=== PATIENT | female | born 1950 | race Caucasian/White ===

== ENCOUNTER 2023-04-06 19:41 | Inpatient (IN) ==
[2023-04-06] MEDS ORDERED: VANCOMYCIN CONSULT ACTIVE PRN (19:50)
[2023-04-06] MEDS ORDERED: SODIUM CHLORIDE 0.9% 1000ML 1,000 ML IV STA (19:50)
[2023-04-06] MEDS ORDERED: cefTRIAXone SODIUM 2,000 MG/70 ML BAG IV STA (19:50)
[2023-04-06] MEDS ORDERED: VANCOMYCIN HCL 2,000 MG in SODIUM CHLORIDE 0.9% 500 ML IV STA (19:50)
[2023-04-06] MEDS ORDERED: KETOROLAC TROMETHAMINE 15 MG/ML VIAL IV ONE (20:02)
--- NOTE | 2023-04-06 20:07 | Emergency Department Note ---
Impression & Plan Bacteremia due to Gram-positive bacteria, Acute sore throat, Acute bacterial tonsillitis ED Provider Note Provider: Juan Vallejo MD DATE OF SERVICE: 04/06/2023 CHIEF COMPLAINT: Called back due to blood cultures HISTORY OF PRESENT ILLNESS: Patient is a 72-year-old female history of paroxysm al atrial fibrillation maintained on flecainide and Xarelto presenting here today after being called back due to positive blood cultures from yesterday. Patient was seen here yesterday in the emergency department and referred from urgent care due to sore throat and fever. Evidently seen in urgent care initially and started on amoxicillin yesterday around noon for possible strep infection although she reports strep testing was negative they thought clinically she would have it. Has a bit of a sore throat causing some difficulty swallowing and a bit of right ear pain. Seen yesterday and had evaluation. Minimal leukocytosis otherwise evaluation was reassuring. Blood cultures obtained. Sent home. Blood cultures returned today positive in both bottles for gram-positive bacteria. Has taken an additional dose of amoxicillin for 3 total doses last at noon. Not eating and drinking much states it hurts to swallow and she is has a bit more tenderness under the right jawline. Breathing okay and denies significant cough. Denies significant abdominal pain but reports her stomach feels a bit unsettled. Generalized fatigue. Has been out for about 2 days. No trauma. Denies rashes or skin issues. PAST MEDICAL HISTORY: As noted above MEDICATIONS: Reviewed home medication SOCIAL HISTORY: Non-smoker PHYSICAL EXAM: GENERAL: alert and oriented in no acute distress on stretcher, fatigued Head: normocephalic and atraumatic EYES: No injection, discharge or icterus. NECK: Trachea midline. ENT: Mucous membranes pink and moist. Pharynx with some mild right-sided swelling and erythema but no significant uvular deviation. No significant tongue elevation. No significant lymphadenopathy under the right jawline. Right TM without significant erythema may be a trace amount of bulging. No mastoid swelling. LUNGS: Airway patent. No retractions or tachypnea HEART: Regular rate and rhythm. No chest wall tenderness ABDOMEN: Soft and non-tender, without guarding or rebound. SKIN: Acyanotic, warm, dry, without rashes EXTREMITIES: Without swelling, tenderness or deformity NEUROLOGICAL: No focal deficits. No aphasia. No facial droop or slurred speech. Ambulatory. CONTINUOUS CARDIAC MONITORING: was ordered and showed a heart rate of bpm in Patient's laboratory studies and imaging reviewed. Differential includes Viral syndrome, otitis, pharyngitis, TREATMENT SPECIALIST, pneumonia, inf luenza, meningitis, urinary tract infection, sepsis, bacteremia, as well as other pathologies. IMPRESSION/MEDICAL DECISION MAKING: Reviewed note work-up from last night. Chest x-ray reassuring. Blood work otherwise reassuring but cultures returned positive today. Gram-positive infection but denies any other skin issues. Denies significant dental issues but have not been to a dentist in a while. There is some swelling in the course soreness of the throat particularly bit on the right and will send for CT scan of the neck to exclude deeper infection or abscess although she does not have hot potato voice. Did not appear toxic or meningitic. Given the positive blood cultures with new culture will be obtained but will cover empirically at this time with ceftriaxone and Rocephin for broad coverage but question if the source may be pharyngeal. No evidence of mastoiditis on clinical exam. Given some fluid hydration she has decreased intake today as well as a bit of Toradol to help with her sore throat. Blood work today with some slightly worsened white blood cell count of 13.1. Normal lactate I doubt sepsis at this point. Negative COVID again today. No significant electrolyte abnormality. Normal creatinine. Normal LFTs. Procalcitonin elevated 4.1. CT of the neck per radiology shows some right tonsillar enlargement with parapharyngeal peritonsillar edema with some mild narrowing of the supraglottic airway. Possibly a small right 6 mm peritonsillar abscess. Also noted some asymmetric enlarged hypervascular right submandibular gland possibly representing a sialoadenitis. Very small in size and the patient is stable without any stridor. Have started antibiotics. We will give a dose of dexamethasone to help with inflammation. Discussed with the hospitalist. D[place] with [place]. Summers [place] [facility] [place] recommended antibiotics and steroids and no acute intervention. DIAGNOSIS: Gram-positive bacteremia, sore throat/tonsillitis DISPOSITION: Hospitalist will evaluate Patient was agreeable with this plan. Past Med/Surg History Medical History (Updated 04/06/23 @ 23:12 by Juan Vallejo M.D.) Chronic anticoagulation Essential hypertension Mitral regurgitation No pertinent family history PAF (paroxysmal atrial fibrillation) Palpitations PVC (premature ventricular contraction) Surgical History (Updated 07/31/20 @ 18:22 by Sorin Andrew MD) No pertinent past surgical history Family History Other Family history non-contributory Social History Smoking Status: Never smoker Preferred Language: Bulgarian Feels Safe at Home: Yes Allergies Allergies Allergy/AdvReac Type Severity Reaction Status Date / Time No Known Allergies Allergy Unknown Unverified 12/12/20 15:10 Home Meds Home Medications Medication Instructions Recorded Confirmed bupropion HCl 150 mg 24 hr tablet, 150 mg PO QAM 06/24/19 12/12/20 extended release calcium carbonate 500 mg calcium 500 mg PO QAM 06/24/19 12/12/20 (1,250 mg) chewable tablet cholecalciferol (vitamin D3) 25 1,000 unit PO QAM 06/24/19 12/12/20 mcg (1,000 unit) tablet (Vitamin D3) glucosamine sulfate 500 mg tablet 500 mg PO QAM 06/24/19 12/12/20 (Glucosamine) multivitamin 1 tab PO QAM 06/24/19 12/12/20 rivaroxaban 20 mg tablet (Xarelto) 20 mg PO HS 06/24/19 12/12/20 atenolol 50 mg tablet 25 mg PO HS 06/24/20 12/12/20 flecainide 50 mg tablet 25 mg PO Q12H 12/12/20 12/12/20 Results & Data (ED) Vital Signs Vital Signs - 24 hr 04/06/23 19:46 Temperature 37.3 C Temperature Source Oral Pulse Rate 70 Respiratory Rate 18 Blood Pressure 126/80 Blood Pressure Mean 95 Pulse Oximetry 93 Oxygen Delivery Method Room Air Sepsis Recent Fever Within 48 Hours Yes Sepsis New/Unexplained Change in Mental Status No Sepsis Action Taken by Nursing No Action Required Laboratory Data 04/06/23 20:10 04/06/23 20:10 Lab Results 04/06/23 04/06/23 04/06/23 Range/Units 20:10 20:10 20:10 WBC 13.12 H (4.8-10.8) K/ul RBC 4.28 (4.20-5.40) M/uL Hgb 12.7 (12.0-16.0) g/dl Hct 38.2 (37.0-47.0) % MCV 89.3 (80.0-100.0) fL MCH 29.7 (25.0-34.0) pg MCHC 33.2 (32.0-36.0) g/dL RDW Std Deviation 41.1 (36.4-46.3) fL RDW Coeff of Lety 12.5 (11.5-14.5) % Plt Count 185 (130-400) K/uL MPV 10.0 (9.4-12.4) fL Immature Gran % (Auto) 0.5 % Neut % (Auto) 81.4 % Lymph % (Auto) 9.7 % [place] % (Auto) 7.6 % Eos % (Auto) 0.6 % Baso % (Auto) 0.2 % Neut # (Auto) 10.68 H (1.40-6.50) K/uL Lymph # (Auto) 1.27 (1.2-3.4) K/uL [place] # (Auto) 1.00 H (0.11-0.59) K/uL Eos # (Auto) 0.08 (0-0.50) K/uL Baso # (Auto) 0.03 (0-0.2) K/uL Immature Gran # (Auto) 0.06 (0.01-0.20) K/uL Sodium 137 (136-145) mmol/L Potassium 3.7 (3.5-5.1) mmol/L Chloride 105 (98-107) mmol/L Carbon Dioxide 25 (21-32) mmol/L Anion Gap 7 (3-11) BUN 19 (6-23) mg/dl Creatinine 1.00 (0.6-1.2) mg/dl Est Cr Clr Drug Dosing 58.3 ml/min Est GFR ( Amer) 64.3 ml/min Est GFR (Non-Af Amer) 55.5 ml/min BUN/Creatinine Ratio 19.0 (10-20) Glucose 110 H (70-99(Fasting)) mg/dl Lactate (0.4-2.0) mmol/L Calcium 8.6 (8.6-10.3) mg/dl Magnesium 1.9 (1.7-2.4) mg/dl Total Bilirubin 0.8 D (0.2-1.0) mg/dl AST 24 (13-39) U/L ALT 16 (7-52) U/L Alkaline Phosphatase 47 (34-104) U/L Total Protein 6.2 (6.0-8.3) gm/dl Albumin 3.6 (3.4-5.0) gm/dl Globulin 2.6 (2.5-4.0) gm/dl Albumin/Globulin Ratio 1.4 (0.9-2) Procalcitonin 4.18 H (0-0.5) ng/ml SARS-CoV-2, RNA, NAAT (NEGATIVE) 04/06/23 04/06/23 Range/Units 20:10 20:44 WBC (4.8-10.8) K/ul RBC (4.20-5.40) M/uL Hgb (12.0-16.0) g/dl Hct (37.0-47.0) % MCV (80.0-100.0) fL MCH (25.0-34.0) pg MCHC (32.0-36.0) g/dL RDW Std Deviation (36.4-46.3) fL RDW Coeff of Lety (11.5-14.5) % Plt Count (130-400) K/uL MPV (9.4-12.4) fL Immature Gran % (Auto) % Neut % (Auto) % Lymph % (Auto) % [place] % (Auto) % Eos % (Auto) % Baso % (Auto) % Neut # (Auto) (1.40-6.50) K/uL Lymph # (Auto) (1.2-3.4) K/uL [place] # (Auto) (0.11-0.59) K/uL Eos # (Auto) (0-0.50) K/uL Baso # (Auto) (0-0.2) K/uL Immature Gran # (Auto) (0.01-0.20) K/uL Sodium (136-145) mmol/L Potassium (3.5-5.1) mmol/L Chloride (98-107) mmol/L Carbon Dioxide (21-32) mmol/L Anion Gap (3-11) BUN (6-23) mg/dl Creatinine (0.6-1.2) mg/dl Est Cr Clr Drug Dosing ml/min Est GFR ( Amer) ml/min Est GFR (Non-Af Amer) ml/min BUN/Creatinine Ratio (10-20) Glucose (70-99(Fasting)) mg/dl Lactate 1.1 (0.4-2.0) mmol/L Calcium (8.6-10.3) mg/dl Magnesium (1.7-2.4) mg/dl Total Bilirubin (0.2-1.0) mg/dl AST (13-39) U/L ALT (7-52) U/L Alkaline Phosphatase (34-104) U/L Total Protein (6.0-8.3) gm/dl Albumin (3.4-5.0) gm/dl Globulin (2.5-4.0) gm/dl Albumin/Globulin Ratio (0.9-2) Procalcitonin (0-0.5) ng/ml SARS-CoV-2, RNA, NAAT NEGATIVE (NEGATIVE) Administered Medications Discontinued Medications Dexamethasone (Dexamethasone Sod Inj 4 Mg/Ml Vial) 6 mg IV NOW STA Stop: 04/06/23 22:27 Last Admin: 04/06/23 22:40 Dose: 6 mg Documented By: MARIA E Vancomycin HCl 2,000 mg/ (Sodium Chloride) 540 mls @ 200 mls/hr IV NOW STA Stop: 04/06/23 22:31 Last Admin: 04/06/23 20:39 Dose: 200 mls/hr Documented By: MARIA E Ceftriaxone Sodium (Rocephin) 2,000 mg in 70 mls @ 140 mls/hr IV NOW STA Stop: 04/06/23 20:19 Last Infusion: 04/06/23 22:12 Dose: 0 mls/hr Documented By: MARIA E Admin: 04/06/23 20:15 Dose: 140 mls/hr Documented By: MARIA E Sodium Chloride (Nss 1000ml) 1,000 mls @ 999 mls/hr IV .Q1H1M STA Stop: 04/06/23 20:50 Last Infusion: 04/06/23 22:12 Dose: 0 mls/hr Documented By: MARIA E Admin: 04/06/23 20:14 Dose: 999 mls/hr Documented By: MARIA E Ioversol (Optiray 320 100ml) 90 ml IV ONCE ONE Stop: 04/06/23 20:35 Last Admin: 04/06/23 20:34 Dose: 90 ml Documented By: JAY Ketorolac Tromethamine (Ketorolac Tromethamine 15 Mg/Ml Vial) 10 mg IV NOW ONE Stop: 04/06/23 20:03 Last Admin: 04/06/23 22:40 Dose: 10 mg Documented By: MARIA E Ketorolac Tromethamine (Ketorolac Tromethamine 15 Mg/Ml Vial) Confirm Administered Dose 15 mg .ROUTE .STK-MED ONE Stop: 04/06/23 22:38 Last Admin: 04/06/23 22:40 Dose: Not Given Documented By: MARIA E Imaging Data Radiologist's Impression: Soft Tissue Neck CT 04/06/23 20:02 CT OF THE NECK WITH IV CONTRAST CLINICAL HISTORY: bacteremia, sore throat, right swelling COMPARISON STUDY: No previous studies for comparison. TECHNIQUE: Following IV administration of 90 mL of Optiray, helical axial images of the neck were obtained. Sagittal and coronal reconstructions were viewed. Automated exposure control was utilized for the study. A dose lowering technique was utilized adhering to the principles of ALARA. FINDINGS: Visualized portions of the intracranial contents are unremarkable. Mastoid air cells are clear. Sinuses are clear. Multiple dental amalgams are noted. Mild asymmetric enlargement and hypervascularity of the right subma ndibular gland with adjacent stranding. Note is made of moderate right parapharyngeal/peritonsillar edema. There is associated prevertebral edema. This results in mass effect upon the airway and hypopharynx with mild airway narrowing. The right aspect of the vallecula and right piriform sinus are ef faced. There is no soft tissue gas. There is a possible small 6 mm right peritonsillar rim-enhancing fluid collection on axial image 125 of 361. No additional fluid collections are present. Major vasculature of the neck is patent. No sialolith is identified although sensitivity is diminished by streak artifact from the dental amalgams. No significant abnormality within the visualized lung apices. IMPRESSION: 1. Asymmetric right tonsillar enlargement with moderate right parapharyngeal/peritonsillar edema consistent with an infectious process. Moderate mass effect which results in mild narrowing of the supraglottic airway and hypopharynx. Possible small 6 mm right peritonsillar abscess. Associated prevertebral edema. 2. Asymmetric enlargement and hypervascularity of the right submandibular gland. This could be reactive or represents sialoadenitis. ACT 112: Negative or not required by law. Electronically signed by: Urban Zelaya M.D. 04/06/2023 10:08 PM Discharge Plan Visit Data Chief Complaint: Infection Stated Complaint: INFECTION,REFERRED BACK ED Provider: Juan Vallejo Discharge Problem: Bacteremia due to Gram-positive bacteria, Acute sore throat, Acute bacterial tonsillitis Patient Disposition: Being Evaluated by Hospitalist Forms Stand Alone Forms: [facility] Prescriptions Prescriptions: No Action atenolol 50 mg tablet 25 mg PO HS flecainide 50 mg tablet 25 mg PO Q12H multivitamin Tablet 1 tab PO QAM glucosamine sulfate [Glucosamine] 500 mg Tablet 500 mg PO QAM calcium carbonate 500 mg calcium (1,250 mg) Tablet,Chewable 500 mg PO QAM bupropion HCl 150 mg tablet extended release 24 hr 150 mg PO QAM cholecalciferol (vitamin D3) [Vitamin D3] 1,000 unit (25 mcg) Tablet 1,000 unit PO QAM Xarelto 20 mg tablet 20 mg PO HS Referrals Referrals: Humberto Jain [Primary Care Provider] -
[2023-04-06] MEDS ORDERED: OPTIRAY 320 100ml IV ONE (20:34)
[2023-04-06 20:38] LABS: Basophils # (auto) 0.03 K/uL (0-0.2); Basophils % (auto) 0.2 %; Eosinophils # (auto) 0.08 K/uL (0-0.50); Eosinophils % (auto) 0.6 %; Hematocrit (blood only) 38.2 % (37.0-47.0); Hemoglobin 12.7 g/dl (12.0-16.0); Immature Granulocytes # (auto) 0.06 K/uL (0.01-0.20); Immature Granulocytes % (auto) 0.5 %; Lymphocytes # (auto) 1.27 K/uL (1.2-3.4); Lymphocytes % (auto) 9.7 %; Mean Corpuscular Hemoglobin 29.7 pg (25.0-34.0); Mean Corpuscular Hgb Conc 33.2 g/dL (32.0-36.0); Mean Corpuscular Volume 89.3 fL (80.0-100.0); Monocytes % (auto) 7.6 %; Neutrophils # (auto) 10.68 K/uL (1.40-6.50); Neutrophils % (auto) 81.4 %; Platelet Count 185 K/uL (130-400); RDW Coefficient of Variation 12.5 % (11.5-14.5); RDW Standard Deviation 41.1 fL (36.4-46.3); Red Blood Count 4.28 M/uL (4.20-5.40); White Blood Count 13.12 K/ul (4.8-10.8)
[2023-04-06 21:26] LABS: Albumin Globulin Ratio 1.4 (0.9-2); Albumin Level 3.6 gm/dl (3.4-5.0); Bilirubin,Total 0.8 mg/dl (0.2-1.0); Calcium 8.6 mg/dl (8.6-10.3); Creatinine Clr Calc Pharmacy 58.3 ml/min; Est GFR (African American) 64.3 ml/min; Est GFR (Non-African American) 55.5 ml/min; Globulin 2.6 gm/dl (2.5-4.0); Magnesium 1.9 mg/dl (1.7-2.4); Potassium 3.7 mmol/L (3.5-5.1); Total Protein 6.2 gm/dl (6.0-8.3)
--- NOTE | 2023-04-06 22:10 | CT Scan Report ---
CT OF THE NECK WITH IV CONTRAST CLINICAL HISTORY: bacteremia, sore throat, right swelling COMPARISON STUDY: No previous studies for comparison. TECHNIQUE: Following IV administration of 90 mL of Optiray, helical axial images of the neck were ob tained. Sagittal and coronal reconstructions were viewed. Automated exposure control was utilized f or the study. A dose lowering technique was utilized adhering to the principles of ALARA. FINDINGS: Visualized portions of the intracranial contents are unremarkable. Mastoid air cells are c lear. Sinuses are clear. Multiple dental amalgams are noted. Mild asymmetric enlargement and hypervas cularity of the right submandibular gland with adjacent stranding. Note is made of moderate right par apharyngeal/peritonsillar edema. There is associated prevertebral edema. This results in mass effect upon the airway and hypopharynx with mild airway narrowing. The right aspect of the vallecula and rig ht piriform sinus are effaced. There is no soft tissue gas. There is a possible small 6 mm right robbin tonsillar rim-enhancing fluid collection on axial image 125 of 361. No additional fluid collections a re present. Major vasculature of the neck is patent. No sialolith is identified although sensitivity is diminished by streak artifact from the dental amalgams. No significant abnormality within the visu alized lung apices. IMPRESSION: 1. Asymmetric right tonsillar enlargement with moderate right parapharyngeal/peritonsillar edema cons istent with an infectious process. Moderate mass effect which results in mild narrowing of the suprag lottic airway and hypopharynx. Possible small 6 mm right peritonsillar abscess. Associated preverteb ral edema. 2. Asymmetric enlargement and hypervascularity of the right submandibular gland. This could be reacti ve or represents sialoadenitis. ACT 112: Negative or not required by law. Electronically signed by: Urban Zelaya M.D. 04/06/2023 10:08 PM
[2023-04-06] MEDS ORDERED: DEXAMETHASONE SOD INJ 4 MG/ML VIAL IV STA (22:26)
[2023-04-06] MEDS ORDERED: KETOROLAC TROMETHAMINE 15 MG/ML VIAL ONE (22:37)
[2023-04-06] MEDS ORDERED: FLECAINIDE ACETATE 100 MG TABLET PO STA (23:32)
[2023-04-06] MEDS ORDERED: PRAVASTATIN SOD 10 MG TAB PO STA (23:32)
[2023-04-06] MEDS ORDERED: ATENOLOL 25 MG TABLET PO ONE (23:32)
[2023-04-06] MEDS ORDERED: RIVAROXABAN 20 MG TAB PO ONE (23:34)
--- NOTE | 2023-04-06 23:43 | History & Physical Report ---
Date of Service April 06, 2023 Assessment & Plan (1) Pharyngitis: (2) Bacteremia due to Gram-positive bacteria: (3) Fever: (4) Acute bacterial tonsillitis: (5) PAF (paroxysmal atrial fibrillation): (6) Essential hypertension: (7) Chronic anticoagulation: (8) Acute sore throat: (9) Peritonsillar abscess: Plan Acute peritonsillar abscess/parapharyngeal and peritonsillar edema/moderate mass effect and mild narrowing of the supraglottic airway/gram-positive bacteremia/right submandibular gland enlargement- Admit to monitored bed Full liquids per patient request Vancomycin IV per pharmacokinetic monitoring Unasyn 3 g IV every 6 hours Dexamethasone 4 mg IV every 8 hours Acetaminophen 650 mg by mouth every 6 hours as needed for mild pain or fever Morphine sulfate 2 mg IV every 4 hours as needed for moderate to severe pain NSS + KCl 20 mEq at 80 mils per hour ENT locally not available for consult until Saturday Paroxysmal atrial fibrillation/hypertension- Continue atenolol, flecainide and Xarelto Anxiety and depression- Continue bupropion Hyperlipidemia- Continue pravastatin History of Present Illness Chief Complaint: The patient was called into the emergency department after blood cultures from previous visit to the ED on 04/05/2023 for sore throat showed gram-positive bacteria Primary Care Provider: Humberto Jain The patient is a 72-year-old female with a past medical history including paroxysmal atrial fibrillation, hypertension, mitral regurgitation, PVCs, palpitations, anxiety and depression, and chronic anticoagulation. The patient had presented to the emergency department on 04/05/2023 for sore throat, and the mono testing that was performed were blood cultures. The patient was called into the emergency department this evening while blood cultures returned gram- positive bacteria. CT scan of the soft tissues of the neck this evening showed a right peritonsillar enlargement with moderate right parapharyngeal and peritonsillar edema, moderate mass effect, with mild narrowing of the supraglottic airway. There is also a 6 mm right peritonsillar abscess with edema. CT also showed a increased size of the right submandibular gland, suggesting possible sialadenitis. From the ED the patient received the following: Dexamethasone 6 mg IV, Toradol 10 mg IV, normal saline 1 L, vancomycin IV and ceftriaxone IV. I did have the patient's case discussed with ENT at [facility], and they agreed that conservative therapy with IV antibiotics and IV steroids would be indicated, and that surgery should not be indicated Allergies Allergy/AdvReac Type Severity Reaction Status Date / Time No Known Allergies Allergy Unknown Unverified 04/06/23 23:22 Home Medications Medication Instructions Recorded Confirmed Type bupropion HCl 150 mg 24 hr tablet, 150 mg PO QAM 06/24/19 04/06/23 History extended release multivitamin 1 tab PO QAM 06/24/19 04/06/23 History rivaroxaban 20 mg tablet (Xarelto) 20 mg PO HS 06/24/19 04/06/23 History atenolol 25 mg tablet 25 mg PO HS 04/06/23 04/06/23 History calcium carbonate 600 mg-vitamin 1 tab PO DAILY 04/06/23 04/06/23 History D3 10 mcg (400 unit) tablet flecainide 50 mg tablet 25 mg PO QAM 04/06/23 04/06/23 History flecainide 50 mg tablet 50 mg PO HS 04/06/23 04/06/23 History glucosamine sulf dipot 1 cap PO QAM 04/06/23 04/06/23 History chlr,msm,chond 550 mg-C 30 mg-lorie 1 mg capsule (Glucosamine Chondroitin) pravastatin 10 mg tablet 10 mg PO QPM 04/06/23 04/06/23 History Past Med/Surg History Medical History (Updated 04/07/23 @ 04:30 by Gorge Galindo MD) Chronic anticoagulation Essential hypertension Mitral regurgitation No pertinent family history PAF (paroxysmal atrial fibrillation) Palpitations PVC (premature ventricular contraction) Surgical History No pertinent past surgical history Family History Other Family history non-contributory Social History Smoking Status: Never smoker Second Hand Exposure: No; Do You Dip or Chew Tobacco: No; Tobacco Cessation Education Requested by Patient: No Hx Alcohol Use: Yes Alcohol type: wine Hx Substance Use: No Preferred Language: Irish Communication Ability: Effective Industrial Renderer Required: No Beliefs That Will Affect Care: None Current Living Situation: Family Other Information That Helps Us Care for You: No Feels Safe at Home: Yes Safety Concerns: Feels Safe At This Time Assistive Devices: Glasses Review of Systems Review of Systems: The patient denies chest pain, palpitations, shortness of breath, dyspnea on exertion, cough, lower extremity swelling, sweats, weight change, fatigue, nausea, vomiting, diarrhea , constipation, abdominal pain, pelvic pain, blood in urine or stool, dysuria, urinary frequency or urgency, lightheadedness, dizziness, headache, memory loss, loss of consciousness, rash, abnormal bruising or bleeding, imbalance, focal or generalized weakness, numbness or tingling in arms or legs, generalized arthralgias or myalgias, back pain, or night sweats. The review of systems is otherwise negative other than for that already noted above, and at least 10 systems have been reviewed. Physical Exam Physical Exam: The patient is awake, alert and oriented 3, well developed and well nourished, normocephalic and atraumatic, lying in bed and in no acute distress. HEENT--PERRL, EOMI. right-sided pharynx, tonsillar ridge, edematous and swollen with small amount of exudate, and displaced medially Neck--supple. No JVD. No bruits. Right anterior cervical lymphadenopathy Heart--normal S1 and S2. No murmurs, rubs or gallops. Lungs--clear bilaterally, no respiratory distress, no accessory muscle use. Abdomen--normal bowel sounds and soft. Nontender. Nondistended, no hernias or masses, no organomegaly. Extremities--no cyanosis or clubbing. No edema. Dermatologic--normal skin turgor, normal color, no abnormal lymph nodes, no rash. Neurologic--cranial nerves II through XII grossly intact. Rheumatologic--normal range of motion. Psychiatric--normal affect. Results & Data Results & Data Vital Signs (Past 12 Hours) Vital Signs Temp Pulse Resp BP Pulse Ox O2 Del Method 04/06/23 19:46 37.3 C 70 18 126/80 93 Room Air Laboratory Results Laboratory Results WBC 13.12 K/ul (4.8-10.8) H 04/06/23 20:10 RBC 4.28 M/uL (4.20-5.40) 04/06/23 20:10 Hgb 12.7 g/dl (12.0-16.0) 04/06/23 20:10 Hct 38.2 % (37.0-47.0) 04/06/23 20:10 MCV 89.3 fL (80.0-100.0) 04/06/23 20:10 MCH 29.7 pg (25.0-34.0) 04/06/23 20:10 MCHC 33.2 g/dL (32.0-36.0) 04/06/23 20:10 RDW Std Deviation 41.1 fL (36.4-46.3) 04/06/23 20:10 RDW Coeff of Lety 12.5 % (11.5-14.5) 04/06/23 20:10 Plt Count 185 K/uL (130-400) 04/06/23 20:10 MPV 10.0 fL (9.4-12.4) 04/06/23 20:10 Immature Gran % (Auto) 0.5 % 04/06/23 20:10 Neut % (Auto) 81.4 % 04/06/23 20:10 Lymph % (Auto) 9.7 % 04/06/23 20:10 Starr % (Auto) 7.6 % 04/06/23 20:10 Eos % (Auto) 0.6 % 04/06/23 20:10 Baso % (Auto) 0.2 % 04/06/23 20:10 Neut # (Auto) 10.68 K/uL (1.40-6.50) H 04/06/23 20:10 Lymph # (Auto) 1.27 K/uL (1.2-3.4) 04/06/23 20:10 Starr # (Auto) 1.00 K/uL (0.11-0.59) H 04/06/23 20:10 Eos # (Auto) 0.08 K/uL (0-0.50) 04/06/23 20:10 Baso # (Auto) 0.03 K/uL (0-0.2) 04/06/23 20:10 Immature Gran # (Auto) 0.06 K/uL (0.01-0.20) 04/06/23 20:10 Sodium 137 mmol/L (136-145) 04/06/23 20:10 Potassium 3.7 mmol/L (3.5-5.1) 04/06/23 20:10 Chloride 105 mmol/L (98-107) 04/06/23 20:10 Carbon Dioxide 25 mmol/L (21-32) 04/06/23 20:10 Anion Gap 7 (3-11) 04/06/23 20:10 BUN 19 mg/dl (6-23) 04/06/23 20:10 Creatinine 1.00 mg/dl (0.6-1.2) 04/06/23 20:10 Est Cr Clr Drug Dosing 58.3 ml/min 04/06/23 20:10 Est GFR ( Amer) 64.3 ml/min 04/06/23 20:10 Est GFR (Non-Af Amer) 55.5 ml/min 04/06/23 20:10 BUN/Creatinine Ratio 19.0 (10-20) 04/06/23 20:10 Glucose 110 mg/dl (70-99(Fasting)) H 04/06/23 20:10 Lactate 1.1 mmol/L (0.4-2.0) 04/06/23 20:44 Calcium 8.6 mg/dl (8.6-10.3) 04/06/23 20:10 Magnesium 1.9 mg/dl (1.7-2.4) 04/06/23 20:10 Total Bilirubin 0.8 mg/dl (0.2-1.0) D 04/06/23 20:10 AST 24 U/L (13-39) 04/06/23 20:10 ALT 16 U/L (7-52) 04/06/23 20:10 Alkaline Phosphatase 47 U/L (34-104) 04/06/23 20:10 Total Protein 6.2 gm/dl (6.0-8.3) 04/06/23 20:10 Albumin 3.6 gm/dl (3.4-5.0) 04/06/23 20:10 Globulin 2.6 gm/dl (2.5-4.0) 04/06/23 20:10 Albumin/Globulin Ratio 1.4 (0.9-2) 04/06/23 20:10 Procalcitonin 4.18 ng/ml (0-0.5) H 04/06/23 20:10 SARS-CoV-2, RNA, NAAT NEGATIVE (NEGATIVE) 04/06/23 20:10 Impressions Soft Tissue Neck CT 04/06/23 20:02 CT OF THE NECK WITH IV CONTRAST CLINICAL HISTORY: bacteremia, sore throat, right swelling COMPARISON STUDY: No previous studies for comparison. TECHNIQUE: Following IV administration of 90 mL of Optiray, helical axial images of the neck were obtained. Sagittal and coronal reconstructions were viewed. Automated exposure control was utilized for the study. A dose lowering technique was utilized adhering to the principles of ALARA. FINDINGS: Visualized portions of the intracranial contents are unremarkable. Mastoid air cells are clear. Sinuses are clear. Multiple dental amalgams are noted. Mild asymmetric enlargement and hypervascularity of the right submandibular gland with adjacent stranding. Note is made of moderate right parapharyngeal/peritonsillar edema. There is associated prevertebral edema. This results in mass effect upon the airway and hypopharynx with mild airway narrowing. The right aspect of the vallecula and right piriform sinus are effaced. There is no soft tissue gas. There is a possible small 6 mm right p eritonsillar rim-enhancing fluid collection on axial image 125 of 361. No additional fluid collections are present. Major vasculature of the neck is patent. No sialolith is identified although sensitivity is diminished by streak artifact from the dental amalgams. No significant abnormality within the visualized lung apices. IMPRESSION: 1. Asymmetric right tonsillar enlargement with moderate right parapharyngeal/peritonsillar edema consistent with an infectious process. Moderate mass effect which results in mild narrowing of the supraglottic airway and hypopharynx. Possible small 6 mm right peritonsillar abscess. Associated prevertebral edema. 2. Asymmetric enlargement and hypervascularity of the right submandibular gland. This could be reactive or represents sialoadenitis. ACT 112: Negative or not required by law. Electronically signed by: Urban Zelaya M.D. 04/06/2023 10:08 PM Code Status & VTE Plan Code Status Full code VTE Prophylaxis Plan VTE Prophylaxis will be ordered: Yes PG Care Time/CCT Total # of Minutes Spent Total Time Spent with Patient: Total time spent is greater than 50% in coordination of care (as documented) at patient's floor/unit and/or counseling patient: Coding Level of Care Code 79582 INT INP/OBS CARE MIN Diagnoses Pharyngitis J02.9 Bacteremia due to Gram-positive bacteria R78.81 Fever R50.9 Acute bacterial tonsillitis J03.80; B96.89 PAF (paroxysmal atrial fibrillation) I48.0 Essential hypertension I10 Chronic anticoagulation Z79.01 Acute sore throat J02.9 Peritonsillar abscess J36
[2023-04-07] MEDS ORDERED: MoRPHine SULFATE 2 MG/ML CARP IV PRN (00:51)
[2023-04-07] MEDS ORDERED: VANCOMYCIN CONSULT ACTIVE PRN (00:51)
[2023-04-07] MEDS ORDERED: ONDANSETRON INJ 2 MG/ML 2 ML VIAL IV PRN (00:51)
[2023-04-07] MEDS ORDERED: ACETAMINOPHEN 325 MG TAB PO PRN (00:51)
--- NOTE | 2023-04-07 01:29 | Pharmacy Report ---
Pharmacy PK ABX Note - Date of Service April 07, 2023 - Assessment and Plan Assessment 72 year old F receiving Vancomycin and Unasyn for treatment of bacteremia and EENT infection. * Day #1 of antimicrobial therapy. * Presented to the ED on 04/05/23 for sore throat and blood cultures from that visit resulted as positive today. They are growing methicillin sensitive staphylococcus epidermidis as well as streptococcus species preliminarily. Repeat blood cultures are pending. * Afebrile with a leukocytosis of 13k. Procalcitonin elevated at 4.18. Plan Vancomycin * Loading dose: 2000 mg IV x 1 * Maintenance dose: 1000 mg IV every 12 hours * Regimen is predicted to achieve target AUC/FERMIN of 400-600 mg/L.hr * Random level ordered for: 04/08/23 Pharmacy will continue to follow and will adjust dose/frequency as necessary. Thank you. Pharmacy has transitioned to AUC monitoring for vancomycin. AUC/FERMIN is the preferred PK/PD target and is associated with decreased risk of nephrotoxicity compared to traditional trough targets.
[2023-04-07] MEDS: AMPICILLIN/SULBACTAM SOD 3,000 MG in 0.9 % SODIUM CHLORIDE 100 ML IV SCH ×4 (01:34→20:46)
[2023-04-07] MEDS: NSS + 20MEQ KCL 20 MEQ/1,000 ML BAG IV SCH ×2 (01:36→14:38)
[2023-04-07 06:38] LABS: Hematocrit (blood only) 37.3 % (37.0-47.0); Hemoglobin 12.9 g/dl (12.0-16.0); Mean Corpuscular Hgb Conc 34.6 g/dL (32.0-36.0); Mean Corpuscular Volume 86.7 fL (80.0-100.0); Mean Platelet Volume 10.6 fL (9.4-12.4); Platelet Count 186 K/uL (130-400); RDW Coefficient of Variation 12.6 % (11.5-14.5); White Blood Count 11.83 K/ul (4.8-10.8)
[2023-04-07 06:56] LABS: Albumin Level 3.7 gm/dl (3.4-5.0); BUN Creatinine Ratio 15.5 (10-20); Calcium 8.3 mg/dl (8.6-10.3); Creatinine Clr Calc Pharmacy 82.3 ml/min; Est GFR (African American) 97.3 ml/min; Est GFR (Non-African American) 83.9 ml/min; Magnesium 1.8 mg/dl (1.7-2.4); Phosphorus 2.4 mg/dl (2.5-4.9); Potassium 3.7 mmol/L (3.5-5.1)
[2023-04-07 07:00] LABS: Basophils # (auto) 0.02 K/uL (0-0.2); Basophils % (auto) 0.2 %; Immature Granulocytes # (auto) 0.08 K/uL (0.01-0.20); Immature Granulocytes % (auto) 0.7 %; Lymphocytes # (auto) 0.69 K/uL (1.2-3.4); Lymphocytes % (auto) 5.8 %; Monocytes # (auto) 0.28 K/uL (0.11-0.59); Monocytes % (auto) 2.4 %; Neutrophils # (auto) 10.76 K/uL (1.40-6.50); Neutrophils % (auto) 90.9 %
[2023-04-07] MEDS ORDERED: VANCOMYCIN HCL 1,000 MG in SODIUM CHLORIDE 0.9% 250 ML IV SCH (08:00)
[2023-04-07] MEDS: CALCIUM 600MG + VIT D 400 IU TAB PO SCH (08:08)
[2023-04-07] MEDS: FLECAINIDE ACETATE 100 MG TABLET PO SCH ×2 (08:08→20:46)
[2023-04-07] MEDS: buPROPion XL 150 MG TABCR PO SCH (08:08)
[2023-04-07] MEDS: MULTIVITAMIN TAB PO SCH (08:11)
[2023-04-07] MEDS: GLUCOSAMINE SULFATE 500 MG CAP PO SCH (08:11)
[2023-04-07] MEDS: dexAMETHasone 4 MG in SYRINGE 0 ML IV SCH ×3 (08:19→22:36)
--- NOTE | 2023-04-07 11:48 | XCELERA ---
[id number] \\[email or web address]\[id number]
--- NOTE | 2023-04-07 13:03 | XRay Report ---
XR chest 2V PA/lateral CLINICAL HISTORY: peritonsillar abscess, hypoxia; eval asp pneumonia TECHNIQUE: 2 views of the chest were obtained. Comparison: Comparison is made to chest radiograph 04/05/2023 FINDINGS: No lines and tubes are seen. The cardiomediastinal silhouette is normal. The lungs are clear. No evid ence of pleural effusion or pneumothorax. Degenerative changes are seen in the spine. IMPRESSION: No acute chest disease. ACT 112: Negative or not required by law. Electronically signed by: Dinesh Moreno M.D. 04/07/2023 1:02 PM
--- NOTE | 2023-04-07 14:25 | Hospitalist Progress Note ---
Date of Service April 07, 2023 Assessment & Plan (1) Septicemia: Plan: 04/05/23 blood cultures + for GPC in clusters and GPC in chains. BioFire - strep, staph. Staph is not MRSA. Can d/c vancomycin. Cont unasyn. Source - submandibular gland on right (sialoadenitis?) vs tonsillitis/DEPENDENCY COUNSELOR vs combination. presentation is a bit unusual given her age and the associated findings on CT neck. (2) Bacteremia: Plan: as above repeat blood cx's x 2 sets thus far negative echo obtained - no obvious signs of SBE (3) Pharyngitis: Plan: uncertain if the pharyngitis and pharyngeal swelling are the primary cause of her presentation or secondary to another process (sialoadenitis). unusual to become bacteremic from pharyngitis especially with staph epi species. she has clinically improved with IV dexamethasone and IV unasyn. continue both abx and steroids. advance diet to soft. I corresponded with Dr Gilberto Garcia from oral surgery -- he will consult tomorrow. hold xarelto in the event she needs any surgical intervention. lower fluid rate to 50cc/hr since she is hydrating well. (4) Peritonsillar abscess: Plan: very small, <1cm, on right side cont IV steroids cont IV antibiotics (5) PAF (paroxysmal atrial fibrillation): Plan: NSR since admission cont flecainide for rhythm control cont atenolol holding Xarelto in the event she needs surgical intervention by Dr Garcia on her throat (6) Essential hypertension: Plan: controlled cont atenolol (7) Mitral regurgitation: Plan: mild on echo 2019 echo today without significant changes in the MV (8) Salivary gland enlargement: Plan: right side on exam that gland is indeed swollen and tender is this a secondary process in the setting of her pharyngeal findings? or is the sialoadenitis the primary issue which then led to near-by pharyngeal swelling? Dr Garcia to consult tomorrow cont IV abx cont IV steroids (9) Pulmonary hypertension: Plan: PA pressure 40-50mmHg thus, mild / grade 1 PH etiology? undiagnosed / untreated BELL? other? deserves f/u with cardiology or pulmonary Plan advance diet to regular with soft consistency left message for pt's son on his voicemail this evening Admission and Anticipated Discharge Date Admission Date: April 06, 2023 Subjective patient reports she is tolerating full liquids and appetite is improved feels that she can eat some solids most of her pain & tenderness is over the right neck/submandibular region on right/right posterior throat the discomfort & pain are improved today when her symptoms began last her pain & tenderness was over the right neck and under the right jaw no pain with chewing no recent dental work telemetry overnight wnl Review of Systems Review of Systems: gen - no fevers or chills cv - no chest pain pulm - no dyspnea or FIGUEROA GI - no vomiting, no diarrhea Physical Exam Physical Exam: gen - NAD, nontoxic, awake, alert HENT - mild pharyngeal erythema right worse than left; mild asymmetry of posterior throat structures; no retropharyngeal swelling; tonsils 1-2+ b/l, modestly larger on right; dental fillings present; no obvious salivary stone on floor of mouth; no dental abscess seen neck - right submandibular gland is enlarged, swollen, and mildly tender; left submandibular gland is normal in calibre heart - RRR, s1 s2, 1/6 DRAGAN LSB lungs - CTA b/l abd - soft NT ND BS+; no HSM ext - no edema, pulses 2+ b/l psych - a/o x 3 Results & Data Results & Data Vital Signs (Past 12 Hours) Vital Signs Temp Pulse Pulse Resp BP Pulse Ox O2 Del Method 04/07/23 11:19 37.5 C 67 18 158/80 H 92 Room Air 04/07/23 10:31 69 04/07/23 07:59 37.4 C 69 18 141/79 H 91 Room Air 04/07/23 03:21 37.2 C 67 18 133/82 90 Room Air Laboratory Results Laboratory Results - last 24 hr 04/07/23 04/07/23 04/07/23 05:36 05:36 05:36 WBC 11.83 H RBC 4.30 Hgb 12.9 Hct 37.3 MCV 86.7 MCH 30.0 MCHC 34.6 RDW Std Deviation 40.0 RDW Coeff of Lety 12.6 Plt Count 186 MPV 10.6 Immature Gran % (Auto) 0.7 Neut % (Auto) 90.9 Lymph % (Auto) 5.8 Elbert % (Auto) 2.4 Eos % (Auto) 0.0 Baso % (Auto) 0.2 Neut # (Auto) 10.76 H Lymph # (Auto) 0.69 L Elbert # (Auto) 0.28 Eos # (Auto) 0.00 Baso # (Auto) 0.02 Immature Gran # (Auto) 0.08 Sodium 140 Potassium 3.7 Chloride 108 H Carbon Dioxide 23 Anion Gap 9 BUN 11 Creatinine 0.71 Est Cr Clr Drug Dosing 82.3 Est GFR ( Amer) 97.3 Est GFR (Non-Af Amer) 83.9 BUN/Creatinine Ratio 15.5 Glucose 153 H Calcium 8.3 L Phosphorus 2.4 L Magnesium 1.8 Albumin 3.7 Hepatitis C Ab (EIA) Pending Hep C Ab Signal/Cutoff Pending Diagnostic Findings Microbiology 04/06/23 20:10 Blood Aerobic Blood Culture - Preliminary No growth in Aerobic bottle after 24 hours. 04/06/23 20:10 Blood Anaerobic Blood Culture - Preliminary No growth in Anaerobic bottle after 24 hours. 04/06/23 20:10 Blood Aerobic Blood Culture - Preliminary No growth in Aerobic bottle after 24 hours. 04/06/23 20:10 Blood Anaerobic Blood Culture - Preliminary No growth in Anaerobic bottle after 24 hours. 04/05/23 blood cultures + for GPC clusters; GPC in chains; Biofire - strep, staph PG Care Time/CCT Total # of Minutes Spent Total Time Spent with Patient: Total time spent is greater than 50% in coordination of care (as documented) at patient's floor/unit and/or counseling patient: Coding Level of Care Code 01779 SUB INP/OBS CARE 3/50MIN Diagnoses Septicemia A41.9 Bacteremia R78.81 Pharyngitis J02.9 Peritonsillar abscess J36 PAF (paroxysmal atrial fibrillation) I48.0 Essential hypertension I10 Mitral regurgitation I34.0 Salivary gland enlargement K11.1 Pulmonary hypertension I27.20
--- NOTE | 2023-04-07 20:00 | Oral/Maxillofacial Consult ---
Date of Consultation April 07, 2023 Assessment & Plan (1) Tonsil, abscess: (2) Salivary gland enlargement: History of Present Illness Attending Physician: Calin Sinclair MD History of Present Illness Impression & Plan Bacteremia due to Gram-positive bacteria, Acute sore throat, Acute bacterial tonsillitis. I reviewed the chart and history prior to being admitted. I personally reviewed the CT scan and agree with the findings. 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 I will see Mrs. Flores in AM and decide if surgical I&D will needed--Hopefully with antibiotics and IV fluids with will improve. I will also evaluate the right submandibular gland involvement as well. I did a clinical exam on Mrs Flores today. The tonsil swelling is almost completely resolved. The right submandibular gland area is also now soft without pain. The current issues most likely started as a tonsillitises that developed into a robbin tonsillar abscess. The IV fluids and antibiotics are resolved the infection. She is able to swallow w/o pain. The tonsil area looks very normal with no evidec eof ant abscess. I would suggest oral antibiotics for 7-10 HISTORY OF PRESENT ILLNESS: Patient is a 72-year-old female history of paroxysmal atrial fibrillation maintained on flecainide and Xarelto presenting here today after being called back due to positive blood cultures from yesterday. Patient was seen here yesterday in the emergency department and referred from urgent care due to sore throat and fever. Evidently seen in urgent care initially and started on amoxicillin yesterday around noon for possible strep infection although she reports strep testing was negative they thought clinically she would have it. Has a bit of a sore throat causing some difficulty swallowing and a bit of right ear pain. Seen yesterday and had evaluation. Minimal leukocytosis otherwise evaluation was reassuring. Blood cultures obtained. Sent home. Blood cultures returned today positive in both bottles for gram-positive bacteria. Has taken an additional dose of amoxicillin for 3 total doses last at noon. Not eating and drinking much states it hurts to swallow and she is has a bit more tenderness under the right jawline. Breathing okay and denies significant cough. Denies significant abdominal pain but reports her stomach feels a bit unsettled. Generalized fatigue. Has been out for about 2 days. No trauma. Denies rashes or skin issues. PHYSICAL EXAM: GENERAL: alert and oriented in no acute distress on stretcher, fatigued Head: normocephalic and atraumatic EYES: No injection, discharge or icterus. NECK: Trachea midline. ENT: Mucous membranes pink and moist. Pharynx with some mild right-sided swelling and erythema but no significant uvular deviation. No significant tongue elevation. No significant lymphadenopathy under the right jawline. Right TM without significant erythema may be a trace amount of bulging. No mastoid swelling. LUNGS: Airway patent. No retractions or tachypnea HEART: Regular rate and rhythm. No chest wall tenderness ABDOMEN: Soft and non-tender, without guarding or rebound. SKIN: Acyanotic, warm, dry, without rashes EXTREMITIES: Without swelling, tenderness or deformity NEUROLOGICAL: No focal deficits. No aphasia. No facial droop or slurred speech. Ambulatory. CONTINUOUS CARDIAC MONITORING: was ordered and showed a heart rate of bpm in Patient's laboratory studies and imaging reviewed. Differential includes Viral syndrome, otitis, pharyngitis, AMPHIBIAN CREWMEMBER, pneumonia, influenza, meningitis, urinary tract infection, sepsis, bacteremia, as well as other pathologies. IMPRESSION/MEDICAL DECISION MAKING: Reviewed note work-up from last night. Chest x-ray reassuring. Blood work otherwise reassuring but cultures returned positive today. Gram-positive infection but denies any other skin issues. Denies significant dental issues but have not been to a dentist in a while. There is some swelling in the course soreness of the throat particularly bit on the right and will send for CT scan of the neck to exclude deeper infection or abscess although she does not have hot potato voice. Did not appear toxic or meningitic. Given the positive blood cultures with new culture will be obtained but will cover empirically at this time with ceftriaxone and Rocephin for broad coverage but question if the source may be pharyngeal. No evidence of mastoiditis on clinical exam. Given some fluid hydration she has decreased intake today as well as a bit of Toradol to help with her sore throat. Blood work today with some slightly worsened white blood cell count of 13.1. No CT of the neck per radiology shows some right tonsillar enlargement with parapharyngeal peritonsillar edema with some mild narrowing of the supraglottic airway. Possibly a small right 6 mm peritonsillar abscess. Also noted some asymmetric enlarged hypervascular right submandibular gland possibly representing a sialoadenitis. Very small in size and the patient is stable without any stridor. Have started antibiotics. We will give a dose of dexamethasone to help with inflammation. Discussed with the hospitalist. Discussed with Dr. Summers of [facility] who recommended antibiotics and steroids and no acute intervention. CT OF THE NECK WITH IV CONTRAST CLINICAL HISTORY: bacteremia, sore throat, right swelling COMPARISON STUDY: No previous studies for comparison. TECHNIQUE: Following IV administration of 90 mL of Optiray, helical axial images of the neck were obtained. Sagittal and coronal reconstructions were viewed. Automated exposure control was utilized for the study. A dose lowering technique was utilized adhering to the principles of ALARA. FINDINGS: Visualized portions of the intracranial contents are unremarkable. Mastoid air cells are clear. Sinuses are clear. Multiple dental amalgams are noted. Mild asymmetric enlargement and hypervascularity of the right submandibular gland with adjacent stranding. Note is made of moderate right parapharyngeal/peritonsillar edema. There is associated prevertebral edema. This results in mass effect upon the airway and hypopharynx with mild airway narrowing. The right aspect of the vallecula and right piriform sinus are effaced. There is no soft tissue gas. There is a possible small 6 mm right peritonsillar rim-enhancing fluid collection on axial image 125 of 361. No additional fluid collections are present. Major vasculature of the neck is patent. No sialolith is identified although sensitivity is diminished by streak artifact from the dental amalgams. No significant abnormality within the visualized lung apices. IMPRESSION: 1. Asymmetric right tonsillar enlargement with moderate right parapharyngeal/peritonsillar edema consistent with an infectious process. Moderate mass effect which results in mild narrowing of the supraglottic airway and hypopharynx. Possible small 6 mm right peritonsillar abscess. Associated prevertebral edema. 2. Asymmetric enlargement and hypervascularity of the right submandibular gland. This could be reactive or represents sialoadenitis. ACT 112: Negative or not required by law. Allergies Allergy/AdvReac Type Severity Reaction Status Date / Time No Known Allergies Allergy Unknown Unverified 04/06/23 23:22 Home Medications Medication Instructions Recorded Confirmed Type bupropion HCl 150 mg 24 hr tablet, 150 mg PO QAM 06/24/19 04/06/23 History extended release multivitamin 1 tab PO QAM 06/24/19 04/06/23 History rivaroxaban 20 mg tablet (Xarelto) 20 mg PO HS 06/24/19 04/06/23 History atenolol 25 mg tablet 25 mg PO HS 04/06/23 04/06/23 History calcium carbonate 600 mg-vitamin 1 tab PO DAILY 04/06/23 04/06/23 History D3 10 mcg (400 unit) tablet flecainide 50 mg tablet 25 mg PO QAM 04/06/23 04/06/23 History flecainide 50 mg tablet 50 mg PO HS 04/06/23 04/06/23 History glucosamine sulf dipot 1 cap PO QAM 04/06/23 04/06/23 History chlr,msm,chond 550 mg-C 30 mg-lorie 1 mg capsule (Glucosamine Chondroitin) pravastatin 10 mg tablet 10 mg PO QPM 04/06/23 04/06/23 History Patient History Medical History (Updated 04/08/23 @ 13:40 by Gilberto Garcia DMD) Chronic anticoagulation Essential hypertension Mitral regurgitation No pertinent family history PAF (paroxysmal atrial fibrillation) Palpitations PVC (premature ventricular contraction) Surgical History No pertinent past surgical history Family History Other Family history non-contributory Social History Smoking Status: Never smoker Second Hand Exposure: No; Do You Dip or Chew Tobacco: No; Hx Alcohol Use: Yes Alcohol type: wine Hx Substance Use: No Preferred Language: Persian Communication Ability: Effective Group Home Worker Required: No Beliefs That Will Affect Care: None Current Living Situation: Family Feels Safe at Home: Yes Assistive Devices: None Results & Data Vital Signs (Past 12 Hours) Vital Signs Temp Pulse Pulse Resp BP Pulse Ox O2 Del Method 04/07/23 19:22 37.0 C 67 18 144/76 H 91 Room Air 04/07/23 15:34 37.5 C 71 20 145/74 H 93 Room Air 04/07/23 15:09 73 04/07/23 11:19 37.5 C 67 18 158/80 H 92 Room Air 04/07/23 10:31 69 PG Care Time/CCT Total # of Minutes Spent Total Time Spent with Patient: Total time spent is greater than 50% in coordination of care (as documented) at patient's floor/unit and/or counseling patient: Coding Level of Care Code 22556 INT INP/OBS CARE 40MIN Diagnoses Tonsil, abscess J36 Salivary gland enlargement K11.1
[2023-04-07] MEDS: RIVAROXABAN 20 MG TAB PO SCH (20:46)
[2023-04-07] MEDS: PRAVASTATIN SOD 10 MG TAB PO SCH (20:46)
[2023-04-07] MEDS: ATENOLOL 25 MG TABLET PO SCH (20:46)
[2023-04-08] MEDS: AMPICILLIN/SULBACTAM SOD 3,000 MG in 0.9 % SODIUM CHLORIDE 100 ML IV SCH ×4 (02:22→19:49)
[2023-04-08 07:21] LABS: Basophils # (auto) 0.01 K/uL (0-0.2); Basophils % (auto) 0.1 %; Hematocrit (blood only) 35.4 % (37.0-47.0); Immature Granulocytes # (auto) 0.08 K/uL (0.01-0.20); Immature Granulocytes % (auto) 0.7 %; Lymphocytes % (auto) 8.1 %; Mean Corpuscular Hgb Conc 33.9 g/dL (32.0-36.0); Mean Corpuscular Volume 88.5 fL (80.0-100.0); Mean Platelet Volume 10.9 fL (9.4-12.4); Monocytes # (auto) 0.41 K/uL (0.11-0.59); Monocytes % (auto) 3.7 %; Neutrophils # (auto) 9.71 K/uL (1.40-6.50); Neutrophils % (auto) 87.4 %; Platelet Count 192 K/uL (130-400); RDW Coefficient of Variation 12.3 % (11.5-14.5); RDW Standard Deviation 40.2 fL (36.4-46.3); White Blood Count 11.11 K/ul (4.8-10.8)
[2023-04-08] MEDS ORDERED: VANCOMYCIN LEVEL ONE (07:30)
[2023-04-08 07:52] LABS: Albumin Level 3.3 gm/dl (3.4-5.0); BUN Creatinine Ratio 15.9 (10-20); Calcium 8.4 mg/dl (8.6-10.3); Creatinine Clr Calc Pharmacy 87.2 ml/min; Est GFR (African American) 99.4 ml/min; Est GFR (Non-African American) 85.8 ml/min; Phosphorus 2.9 mg/dl (2.5-4.9); Potassium 3.8 mmol/L (3.5-5.1)
[2023-04-08] MEDS: dexAMETHasone 4 MG in SYRINGE 0 ML IV SCH ×3 (08:26→20:35)
[2023-04-08] MEDS: FLECAINIDE ACETATE 100 MG TABLET PO SCH ×2 (08:32→19:46)
[2023-04-08] MEDS: GLUCOSAMINE SULFATE 500 MG CAP PO SCH (08:32)
[2023-04-08] MEDS: MULTIVITAMIN TAB PO SCH (08:32)
[2023-04-08 08:34] LABS: Estimated Average Glucose 111 mg/dl; Hemoglobin A1C 5.5 % (4.5-5.6)
[2023-04-08] MEDS: CALCIUM 600MG + VIT D 400 IU TAB PO SCH (08:34)
[2023-04-08] MEDS: buPROPion XL 150 MG TABCR PO SCH (08:34)
[2023-04-08] MEDS: NSS + 20MEQ KCL 20 MEQ/1,000 ML BAG IV SCH (09:49)
--- NOTE | 2023-04-08 19:42 | Hospitalist Progress Note ---
Date of Service April 08, 2023 Assessment & Plan (1) Septicemia: Plan: 04/05/23 blood cultures + for GPC in clusters and GPC in chains. appears that GPC clusters is coag negative staph. Biofire showed that GPC chains is strep. Remains on unasyn. Source - submandibular gland on right (sialoadenitis?) vs tonsillitis/CLERK STENOGRAPHER vs combination. presentation is a bit unusual given her age and the associated findings on CT neck. also unusual in that if the primary source was the throat coag negative staph would be very atypical pathogen. literature search re: coag negative staph from the throat is limited to some small studies with children. those studies suggested that coag negative staph does show up on throat cultures at times but felt to be colonizers rather than pathogenic. clinical picture is certainly atypical. will ask infectious diseases to weight in on the above. consult them on 04/09. (2) Bacteremia: Plan: as above repeat blood cx's x 2 sets thus far negative echo obtained - no obvious signs of SBE (3) Pharyngitis: Plan: uncertain if the pharyngitis and pharyngeal swelling are the primary cause of her presentation or secondary to another process (sialoadenitis). unusual to become bacteremic from pharyngitis especially with coag negative staph from the throat?? not surprised about the strep species. she has clinically improved with IV dexamethasone and IV unasyn. continue both abx and steroids. will reduce dexamethasone to 4mg BID. appreciate Dr Gilberto Garcia from oral surgery seeing patient in consult. NO surgery needed on peritonsillar abscess at this time. continue IV steroids and abx. can resume xarelto since surgical intervention isn't needed. Dr Garcia feels that the pharyngitis and CLERK STENOGRAPHER were the primary cause of her presentation with the salivary gland be secondary. stop IV fluids - she is eating/drinking well. await final blood cultures from 04/05/23. (4) Peritonsillar abscess: Plan: very small, <1cm, on right side cont IV steroids cont IV antibiotics no surgical intervention needed she is clinically improved (5) Salivary gland enlargement: Plan: right side on exam yesterday that gland was indeed very swollen and tender the gland is MUCH better today Dr Garcia saw patient in consult and feels that the salivary gland is a secondary process in the setting of her pharyngitis cont IV abx cont IV steroids but wean to BID dosing today (6) PAF (paroxysmal atrial fibrillation): Plan: NSR since admission cont flecainide for rhythm control cont atenolol resume Xarelto (7) Essential hypertension: Plan: controlled cont atenolol (8) Mitral regurgitation: Plan: mild on echo 2019 echo this admission without significant changes in the MV (9) Pulmonary hypertension: Plan: PA pressure 40-50mmHg thus, mild / grade 1 PH etiology? undiagnosed / untreated BELL? other? deserves f/u with [facility] pulmonary after discharge; will need sleeps study, PFTs, perhaps advanced imaging of chest, etc. in addition, during the stay, her o2 sats in RA have been 90-92% with good waveform she has no pulmonary symptoms and her cxr is normal etiology?? wouldn't expect mild pulm HTN to cause o2 sats in low 90s as we are seeing asked staff to walk patient in hallway and check o2 sats re-eval tomorrow (10) Morbid obesity with BMI of 40.0-44.9, adult: Plan: BMI ~40 Plan left message for pt's son on his voicemail yesterday evening Admission and Anticipated Discharge Date Admission Date: April 06, 2023 Subjective patient feels pretty good with exception of fatigue and a little weakness despite such able to walk independently swallowing without difficulty appetite improving sore throat and right jaw discomfort/pain improved tele with NSR overnight o2 sats in room air noted to be 91-92% Review of Systems Review of Systems: gen - no fevers or chills cv - no chest pain or orthopnea pulm - rare dyspnea on exertion; otherwise no PND, cough, or dyspnea at rest; she is unsure if she snores GI - mild loose stool but not severe; no nausea/emesis Physical Exam Physical Exam: gen - NAD, nontoxic, awake, alert; pleasant HENT - mild pharyngeal erythema right worse than left; no retropharyngeal swelling; tonsils 1-2+ on right, 1+ on left; mild injection of tonsils; dental fillings present; no obvious salivary stone on floor of mouth; no dental abscess seen neck - right submandibular gland that was previously enlarged, swollen, and mildly tender is MUCH improved today; left submandibular gland is normal in [facility] heart - RRR, s1 s2, 1/6 DRAGAN LSB lungs - CTA b/l abd - soft NT ND BS+; no HSM ext - no edema, pulses 2+ b/l psych - a/o x 3 Results & Data Results & Data Vital Signs (Past 12 Hours) Vital Signs Temp Pulse Resp BP BP Pulse Ox O2 Del Method 04/08/23 19:12 36.7 C 63 16 155/89 H 91 Room Air 04/08/23 15:10 36.6 C 68 20 144/79 H 90 Room Air 04/08/23 11:49 36.9 C 60 18 137/78 91 Room Air 04/08/23 07:48 37.1 C 59 L 20 135/74 91 Room Air Laboratory Results Laboratory Results - last 48 hr 04/07/23 04/08/23 04/08/23 05:36 06:13 06:13 WBC 11.11 H RBC 4.00 L Hgb 12.0 Hct 35.4 L MCV 88.5 MCH 30.0 MCHC 33.9 RDW Std Deviation 40.2 RDW Coeff of Lety 12.3 Plt Count 192 MPV 10.9 Immature Gran % (Auto) 0.7 0.7 Neut % (Auto) 90.9 87.4 Lymph % (Auto) 5.8 8.1 [place] % (Auto) 2.4 3.7 Eos % (Auto) 0.0 0.0 Baso % (Auto) 0.2 0.1 Neut # (Auto) 10.76 H 9.71 H Lymph # (Auto) 0.69 L 0.90 L [place] # (Auto) 0.28 0.41 Eos # (Auto) 0.00 0.00 Baso # (Auto) 0.02 0.01 Immature Gran # (Auto) 0.08 0.08 Sodium 141 Potassium 3.8 Chloride 109 H Carbon Dioxide 25 Anion Gap 7 BUN 11 Creatinine 0.69 Est Cr Clr Drug Dosing 87.2 Est GFR ( Amer) 99.4 Est GFR (Non-Af Amer) 85.8 BUN/Creatinine Ratio 15.9 Glucose 135 H Estimat Average Glucose Hemoglobin A1c Calcium 8.4 L Phosphorus 2.9 Albumin 3.3 L 04/08/23 06:13 WBC RBC Hgb Hct MCV MCH MCHC RDW Std Deviation RDW Coeff of Lety Plt Count MPV Immature Gran % (Auto) Neut % (Auto) Lymph % (Auto) [place] % (Auto) Eos % (Auto) Baso % (Auto) Neut # (Auto) Lymph # (Auto) [place] # (Auto) Eos # (Auto) Baso # (Auto) Immature Gran # (Auto) Sodium Potassium Chloride Carbon Dioxide Anion Gap BUN Creatinine Est Cr Clr Drug Dosing Est GFR ( Amer) Est GFR (Non-Af Amer) BUN/Creatinine Ratio Glucose Estimat Average Glucose 111 Hemoglobin A1c 5.5 Calcium Phosphorus Albumin Diagnostic Findings 04/05/23 blood cultures - GPC clusters and chains; it appears the GPC clusters is coag neg staph 04/06/23 blood cultures negative to date PG Care Time/CCT Total # of Minutes Spent Total Time Spent with Patient: Total time spent is greater than 50% in coordination of care (as documented) at patient's floor/unit and/or counseling patient: Coding Level of Care Code 71131 SUB INP/OBS CARE 2/35MIN Diagnoses Septicemia A41.9 Bacteremia R78.81 Pharyngitis J02.9 Peritonsillar abscess J36 Salivary gland enlargement K11.1 PAF (paroxysmal atrial fibrillation) I48.0 Essential hypertension I10 Mitral regurgitation I34.0 Pulmonary hypertension I27.20 Morbid obesity with BMI of 40.0-44.9, adult E66.01; Z68.41
[2023-04-08] MEDS: PRAVASTATIN SOD 10 MG TAB PO SCH (19:46)
[2023-04-08] MEDS: ATENOLOL 25 MG TABLET PO SCH (19:46)
[2023-04-08] MEDS ORDERED: Nursing to Pharmacy Communication SCH (20:45)
[2023-04-08] MEDS: RIVAROXABAN 20 MG TAB PO SCH (22:02)
[2023-04-09] MEDS: AMPICILLIN/SULBACTAM SOD 3,000 MG in 0.9 % SODIUM CHLORIDE 100 ML IV SCH ×2 (02:05→08:39)
[2023-04-09 06:49] LABS: Basophils # (auto) 0.02 K/uL (0-0.2); Basophils % (auto) 0.2 %; Hematocrit (blood only) 37.8 % (37.0-47.0); Hemoglobin 12.6 g/dl (12.0-16.0); Immature Granulocytes # (auto) 0.07 K/uL (0.01-0.20); Immature Granulocytes % (auto) 0.7 %; Lymphocytes # (auto) 0.95 K/uL (1.2-3.4); Lymphocytes % (auto) 10.1 %; Mean Corpuscular Hemoglobin 29.4 pg (25.0-34.0); Mean Corpuscular Hgb Conc 33.3 g/dL (32.0-36.0); Mean Corpuscular Volume 88.3 fL (80.0-100.0); Mean Platelet Volume 10.7 fL (9.4-12.4); Monocytes # (auto) 0.33 K/uL (0.11-0.59); Monocytes % (auto) 3.5 %; Neutrophils # (auto) 8.08 K/uL (1.40-6.50); Neutrophils % (auto) 85.5 %; Platelet Count 244 K/uL (130-400); RDW Coefficient of Variation 12.4 % (11.5-14.5); RDW Standard Deviation 40.2 fL (36.4-46.3); Red Blood Count 4.28 M/uL (4.20-5.40); White Blood Count 9.45 K/ul (4.8-10.8)
[2023-04-09 07:04] LABS: Albumin Level 3.3 gm/dl (3.4-5.0); BUN Creatinine Ratio 24.3 (10-20); Calcium 8.6 mg/dl (8.6-10.3); Creatinine Clr Calc Pharmacy 84.6 ml/min; Est GFR (African American) 98.2 ml/min; Est GFR (Non-African American) 84.8 ml/min; Phosphorus 3.6 mg/dl (2.5-4.9); Potassium 3.7 mmol/L (3.5-5.1)
[2023-04-09] MEDS: GLUCOSAMINE SULFATE 500 MG CAP PO SCH (08:41)
[2023-04-09] MEDS: dexAMETHasone 4 MG in SYRINGE 0 ML IV SCH (08:41)
[2023-04-09] MEDS: MULTIVITAMIN TAB PO SCH (08:42)
[2023-04-09] MEDS: CALCIUM 600MG + VIT D 400 IU TAB PO SCH (08:42)
[2023-04-09] MEDS: FLECAINIDE ACETATE 100 MG TABLET PO SCH (08:42)
[2023-04-09] MEDS: buPROPion XL 150 MG TABCR PO SCH (08:43)
--- NOTE | 2023-04-09 11:34 | Discharge Summary ---
Date of Service April 09, 2023 Admission HPI Per Admitting Provider The patient is a 72-year-old female with a past medical history including paroxysmal atrial fibrillation, hypertension, mitral regurgitation, PVCs, palpitations, anxiety and depression, and chronic anticoagulation. The patient had presented to the emergency department on 04/05/2023 for sore throat, and the mono testing that was performed were blood cultures. The patient was called into the emergency department this evening while blood cultures returned gram- positive bacteria. CT scan of the soft tissues of the neck this evening showed a right peritonsillar enlargement with moderate right parapharyngeal and peritonsillar edema, moderate mass effect, with mild narrowing of the supraglottic airway. There is also a 6 mm right peritonsillar abscess with edema. CT also showed a increased size of the right submandibular gland, suggesting possible sialadenitis. From the ED the patient received the following: Dexamethasone 6 mg IV, Toradol 10 mg IV, normal saline 1 L, vancomycin IV and ceftriaxone IV. I did have the patient's case discussed with ENT at [facility], and they agreed that conservative therapy with IV antibiotics and IV steroids would be indicated, and that surgery should not be indicated Principal Diagnosis peritonsilar abscess Discharge Exam The patient is awake, alert and oriented 3, well developed and well nourished, normocephalic and atraumatic, lying in bed and in no acute distress. HEENT--PERRL, EOMI, mucous membranes and oropharynx mildly dry Neck--supple. No JVD. No bruits. Thyroid normal, trachea midline, no adenopathy. Heart--normal S1 and S2. No murmurs, rubs or gallops. Lungs--clear bilaterally, no respiratory distress, no accessory muscle use. Abdomen--normal bowel sounds and soft. Mild epigastric and left sided abdominal pain Extremities--no cyanosis or clubbing. No edema. Dermatologic--normal skin turgor, normal color, no abnormal lymph nodes, no rash . Neurologic--cranial nerves II through XII grossly intact. Rheumatologic--normal range of motion. Psychiatric--normal affect. Discharge Data Allergies Allergy/AdvReac Type Severity Reaction Status Date / Time No Known Allergies Allergy Unknown Unverified 04/06/23 23:22 Consultations 04/06/23 23:07 ED Decision to Admit Stat 04/07/23 17:44 Consult Oromaxillofacial Surgery Routine Ordered Studies 04/06/23 20:02 CT soft tissue neck w con Stat Hospital Course (1) Septicemia: 04/05/23 blood cultures + for GPC in clusters and GPC in chains. appears that GPC clusters is coag negative staph. Biofire showed that GPC chains is strep. Patient did not want ID consult, since she said it may hold up her discharge She said she feels over all better and would prefer discharge with PO natibiotics However, she said she would come back if she gets worse Will d/c her on PO Augmentin for 10 more days (2) Bacteremia: as above repeat blood cx's x 2 sets thus far negative echo obtained - no obvious signs of SBE (3) Pharyngitis: uncertain if the pharyngitis and pharyngeal swelling are the primary cause of her presentation or secondary to another process (sialoadenitis). unusual to become bacteremic from pharyngitis especially with coag negative staph from the throat?? not surprised about the strep species. she has clinically improved with IV dexamethasone and IV unasyn. continue both abx and steroids. will reduce dexamethasone to 4mg BID. appreciate Dr Gilberto Garcia from oral surgery seeing patient in consult. NO surgery needed on peritonsillar abscess at this time. continue IV steroids and abx. can resume xarelto since surgical intervention isn't needed. Dr Garcia feels that the pharyngitis and ENGINEERING FACULTY were the primary cause of her presentation with the salivary gland be secondary. stop IV fluids - she is eating/drinking well. Repeat blood culture is negative Will discharge on PO Augmentin per ENT's recommendations (4) Peritonsillar abscess: very small, <1cm, on right side cont IV steroids cont IV antibiotics no surgical intervention needed she is clinically improved (5) Salivary gland enlargement: right side on exam yesterday that gland was indeed very swollen and tender the gland is MUCH better today Dr Garcia saw patient in consult and feels that the salivary gland is a secondary process in the setting of her pharyngitis cont IV abx cont IV steroids but wean to BID dosing today (6) PAF (paroxysmal atrial fibrillation): NSR since admission cont flecainide for rhythm control cont atenolol resume Xarelto (7) Essential hypertension: controlled cont atenolol (8) Mitral regurgitation: mild on echo 2019 echo this admission without significant changes in the MV (9) Pulmonary hypertension: PA pressure 40-50mmHg thus, mild / grade 1 PH etiology? undiagnosed / untreated BELL? other? deserves f/u with [facility] pulmonary after discharge; will need sleeps study, PFTs, perhaps advanced imaging of chest, etc. (10) Morbid obesity with BMI of 40.0-44.9, adult: BMI ~40 Plan d/c home Total Time Total Time Spent Total Time Spent (In Minutes): 35 Discharge Plan Discharge Items Patient Disposition: Home - Self-Care Reason For Visit: PERITONSILLAR ABSCESS Discharge Diagnosis: peritonsilar abscess Activity: Resume your previous activity Non-emergency contact: Primary Care Provider Call non-emergency contact if: you have any medication questions Follow-up/Referrals: Humberto Jain [Primary Care Provider] - Diet: Regular Addtl Attending Provider Instructions: jackelyn make appointment to follow up with your regular PCP Pending Studies at Discharge: No Stand-Alone Forms: My [facility] mcTEL, Smoking Cessation Medications and DC Order Prescriptions: New amoxicillin-pot clavulanate [Augmentin XR] 1,000-62.5 mg tablet extended release 12 hr 1 tab PO BID 10 Days Qty: 20 0RF Continued multivitamin Tablet 1 tab PO QAM bupropion HCl 150 mg tablet extended release 24 hr 150 mg PO QAM Xarelto 20 mg tablet 20 mg PO HS atenolol 25 mg tablet 25 mg PO HS pravastatin 10 mg tablet 10 mg PO QPM flecainide 50 mg tablet 50 mg PO HS flecainide 50 mg tablet 25 mg PO QAM calcium carbonate-vitamin D3 600 mg-10 mcg (400 unit) Tablet 1 tab PO DAILY Glucosamine Chondroitin 550-30-1 mg Capsule 1 cap PO QAM Discharge Orders: Discharge Order (Routine); Ordered 04/09/23 Ordered By: Orestes Brandon Admission Data Admit Date/Time: 04/06/23 23:42 Attending Provider: Orestes Brandon Admit Provider: Gorge Galindo Primary Care Provider: Humberto Jain Other Providers: Gorge Galindo ; Gilberto Garcia Coding Level of Care Code 09447 INP/OBS DISCH >30 MIN Diagnoses Septicemia A41.9 Bacteremia R78.81 Pharyngitis J02.9 Peritonsillar abscess J36 Salivary gland enlargement K11.1 PAF (paroxysmal atrial fibrillation) I48.0 Essential hypertension I10 Mitral regurgitation I34.0 Pulmonary hypertension I27.20 Morbid obesity with BMI of 40.0-44.9, adult E66.01; Z68.41
== END 2023-04-09 13:05 | disposition home or self-care (01) | DRG 872 ==
LOC: ED 19:41 → 2E 23:42 → SUATTDRO 23:42 → 2E 04-07 00:40